=== PATIENT | female | born 1975 | race Caucasian/White ===

== ENCOUNTER 2018-09-01 15:27 | Emergency (ER) | payer OTHER, SELFPAY ==
[2018-09-01 15:28] VITALS: BP 127/83; PULSE 99; RESP 15; TEMP 36.7; O2SAT 98; BMI 24.4
--- NOTE | 2018-09-01 15:55 | ED.DCSUM_ITS ---
- ER Visit Summary Date of Service: 09/01/18 Chief Complaint: Horse kicked to the left foot History of Present Illness: The patient is a 42 F who presents for injury to the left foot after a horse kicked her while she was in the saddle of another horse. Patient is having pain and difficulty bearing weight. Patient denies any other injuries. No medical history. Physical Examination: Patient is awake and alert, afebrile and hemodynamically stable sitting in bed in no distress. Examination of the left lower extremity shows a contusion and mild swelling over the dorsum of the foot, more laterally than medially. Tender to palpation. DP pulses 2+. Patient able to wiggle toes. Sensation intact all dermatomes. No tenderness to the lateral or medial malleolus. Patient able to dorsiflex and plantar flex. Test Results: Clinical Impression(s) from Imaging Studies Foot X-Ray 09/01/18 16:01 IMPRESSION: No fracture or malalignment. Electronically Signed: Cole Hunt MD at 16:27 EDT , Service support , Medications Given Discontinued Medications Ibuprofen (Motrin) 600 mg PO X1 ONE Stop: 09/01/18 15:54 Last Admin: 09/01/18 16:02 Dose: 600 mg Emergency Department Course and Treatment: Patient was given ibuprofen for pain. X-ray performed of the foot and showed no fractures or dislocations. Patient was offered and declined pain medication for home. She was offered and declined a hard soled shoe, as she is already wearing shoes that have a recently hard soled. Patient was offered and declined crutches to use as needed. She has some at home. She was witnessed bearing weight and taking a few steps on the foot prior to discharge. Patient will use [id number] pain medication as needed. Discharged home. Treatment Plan: [] Disposition: [] Impression: Left foot contusion secondary to blunt trauma This note was generated with langtaojination software. It may contain incorrect words, spelling, and punctuation that were not noted in review of the chart prior to signing ED Disposition - Plan for ED Patient: Disposition: Home or Assisted Living Instructions: ED Contusion Foot Referrals: [facility] Doctor,Out of [NON-STAFF] - Additional Instructions: Please rest your foot, keep it elevated when possible, ice it 3-4 times a day, and use [id number] pain medication as needed. Follow-up with your doctor for a reevaluation in 5-7 days if you have any further concerns. If at any time you find you are unable to bear weight on the foot or you have uncontrolled pain, please return immediately to the emergency department for another evaluation. If you have any worsening of your condition or any new concerning symptoms, please return immediately to the emergency department for another evaluation.
--- NOTE | 2018-09-01 16:01 | RAD_ITS ---
STUDY: X-RAY - LEFT FOOT CLINICAL: Female, 42 years old. Left foot pain after eating at by a horse TECHNIQUE: 3 view(s) of the foot. COMPARISON: None. FINDINGS: Normal talus, calcaneus, and tarsal bones. Normal visualized subtalar, talonavicular, calcaneocuboid, tarsal and tarsometatarsal articulations. Normal metatarsi. Normal metatarsophalangeal joint of the great toe. Normal tibial and fibular sesamoid bones. Normal interphalangeal joint of the great toe. Normal phalanges of the great toe. Normal second through fifth metatarsophalangeal joints. Normal interphalangeal joints and phalanges of the lesser toes. The soft tissue structures are unremarkable. RAD/Foot min 3 Views IMPRESSION: No fracture or malalignment. Electronically Signed: Cole Hunt MD at 16:27 EDT , Service support ,
[2018-09-01] MEDS: Ibuprofen 600 MG Tablet PO (16:02)
[2018-09-01 17:13] VITALS: BP 125/74; PULSE 70; RESP 15
== END 2018-09-01 17:14 | disposition home or self-care (01) ==
PROVIDERS: Emergency Provider Emergency Medicine; Family Provider Family Medicine; PCP Family Medicine
DX: S90.32XA Contusion of left foot, initial encounter (principal); W55.12XA Struck by horse, initial encounter; Y93.52 Activity, horseback riding; Y92.9 Unspecified place or not applicable; Y99.9 Unspecified external cause status
CPT/HCPCS: 73630; 99283